=== PATIENT | female | born 1995 | race Caucasian/White ===

== ENCOUNTER 2018-01-04 20:39 | Emergency (ER) | payer OTHER ==
[2018-01-04 20:54] LABS: #Basophils 0.1 thou/uL (0.0-0.2); #Eosinphils 0.1 thou/uL (0.0-0.7); #Lymphocytes 1.5 thou/uL (1.20-3.40); #Monocytes 0.5 thou/uL (0.11-0.59); #Neutrophils 3.3 thou/uL (1.40-6.50); %Basophils 1.1 % (0.0-1.0); %Eosinophils 0.9 % (0.0-10.0); %Lymphocytes 28.4 % (21.0-51.0); %Neutrophils 60.6 % (42.0-75.0); Hemoglobin 12.6 g/dL (12.0-16.0); Mean Corpuscular HGB CONC 31.3 g/dL (32.0-36.0); Mean Corpuscular Hemoglobin 23.5 pg (27.0-31.0); Mean Corpuscular Volume 75.3 fL (78.0-98.0); Mean Platelet Volume 8.4 fL (7.4-10.4); Platelet Count 287 thou/uL (130-400); RBC Distribution Width 15.3 % (11.5-14.5); Red Blood Cell (RBC) Count 5.35 mill/uL (4.20-5.40); White Blood Cell (WBC) Count 5.4 thou/uL (4.8-10.8)
[2018-01-04 21:24] LABS: BHCG - Serum Negative (NEGATIVE); Pregs Control Background? CLEAR/WHITE (CLR/WHITE); Pregs Control Bar Appear? YES (CONTROL BAR)
[2018-01-04 21:28] LABS: ALT (SGPT) 17 U/L (8-55); AST (SGOT) 31 U/L (5-34); Albumin 4.7 g/dL (3.5-5.0); Alkaline Phosphatase 90 U/L (40-150); Anion Gap 16 mmol/L (10-20); BUN (Urea Nitrogen) 13 mg/dL (7.0-18.7); Bilirubin, Total 0.3 mg/dL (0.2-1.2); Calc. Creatinine Clearance 0 mL/min (70-130); Calcium 9.4 mg/dL (7.8-10.44); Carbon Dioxide 24 mmol/L (22-29); Chloride 104 mmol/L (98-107); Estimated GFR-MDRD 73; Globulin 2.9 g/dL (2.4-3.5); Glucose 76 mg/dL (70-105); Potassium 3.5 mmol/L (3.5-5.1); Protein, Total 7.6 g/dL (6.0-8.3); Sodium 140 mmol/L (136-145)
--- NOTE | 2018-01-04 21:42 | RAD ---
THREE VIEWS LEFT SHOULDER 01/04/18 COMPARISON: None. HISTORY: Injury, trauma, pain. FINDINGS: No widening of the acromioclavicular or coracoclavicular interspace is seen. No displaced fracture or evidence of dislocation. IMPRESSION: No acute findings. POS: [email or web address]
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
--- NOTE | 2018-01-04 22:24 | CT ---
CT OF THE CERVICAL SPINE WITHOUT CONTRAST 01/04/18 COMPARISON: None. HISTORY: Injury, trauma, pain. TECHNIQUE: Serial axial CT imaging at 2.5 mm intervals from skull base through lung apices without contrast. Cor onal and sagittal reformatted imaging obtained. FINDINGS: The imaged lung apices appear unremarkable. The C1 ring is intact. The occipital condyles, the dens, the C1-2 articulation, and the C1 ring appea r unremarkable. There is a punctate calcific density which is seen just superior to the C1 ring posteriorly and to th e left of midline on image 30 measuring 2-3 mm. This could represent a small avulsion fracture or sof t tissue calcification. There is an obliquely oriented nondisplaced fracture involving the lamina on the right at the C5 level. In addition, there is widening of the facet joint on the right at C5-6 sug gesting a degree of traumatic subluxation. There is no significant anterolisthesis or retrolisthesis. No obvious prevertebral soft tissue swelling. No evidence for an additional cervical spine fracture is seen. IMPRESSION: Acute fracture right C5 lamina with widening of right C5-6 facet joint suggesting traumatic subluxati on on the basis of acute cervical spine injury. Punctate calcification adjacent to C1 ring posteriorl y on the left as well which may be on the basis of soft tissue calcification or less likely trauma. Results called to Dr. De Los Santos at 9:15 p.m., 01/04/18. Recommend neurosurgical consultation and followup cervical spine MRI. Code CR POS: [facility]
[2018-01-04] MEDS ORDERED: HYDROcodone/Acetaminophen 5/325 mg Tablet ONE (23:24)
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
== END 2018-01-05 00:07 | disposition home or self-care (01) ==
LOC: ERS 20:39
DX: S12.400A Unspecified displaced fracture of fifth cervical vertebra, initial encounter for closed fracture (principal); S01.312A Laceration without foreign body of left ear, initial encounter; V59.9XXA Occupant (driver) (passenger) of pick-up truck or van injured in unspecified traffic accident, initial encounter
CPT/HCPCS: 70450; 72125; 80053; 84703; 85025; G0390